=== PATIENT | male | born 1945 | race Caucasian/White ===

== ENCOUNTER 2021-04-17 14:08 | Emergency (ER) | payer BC, OTHER ==
[2021-04-17] MEDS ORDERED: Ketorolac 15 MG/ML SDV IVPUSH ONE (15:56)
[2021-04-17] MEDS ORDERED: Lactated Ringers 1,000 ML IV ONE (15:56)
--- NOTE | 2021-04-17 16:03 | EDM.PDOC ---
ED HPI GENERAL MEDICAL PROBLEM - General Chief Complaint: Respiratory Problem Stated Complaint: SOB Time Seen by Provider: 04/17/21 16:01 Source of Information: Reports: Patient History Limitations: Reports: No Limitations - History of Present Illness INITIAL COMMENTS - FREE TEXT/NARRATIVE: Patient 75-year-old male with no significant past medical history presenting with chief complaint of headache, weakness, fatigue, weight loss. Patient reports symptoms have been going on for 1.5 weeks now. Symptoms have not improved. During this period of time, patient has lost approximately 10 pounds. Patient reports his head is sore but it does not have a headache. He states this is caused him to lose his appetite. He denies any associated nausea, vomiting, diarrhea. Patient has no cough or difficulty breathing. Patient denies any sore throat or runny nose. Patient has no abdominal pain. Patient has had 2 - Covid test during this time. No interventions performed prior to arrival. 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 Social & Family History - Tobacco Use Tobacco Use Status *Q: Current Every Day Tobacco User Years of Tobacco use: 50 Packs/Tins Daily: 1 - Caffeine Use Caffeine Use: Reports: Coffee - Recreational Drug Use Recreational Drug Use: No ED ROS GENERAL - Review of Systems Review Of Systems: See Below Free Text/Narrative/Comment: In addition to that documented in the HPI above, the additional ROS was obtained: Constitutional: Per HPI Eyes: Denies vision changes ENMT: Denies sore throat CV: Denies chest pain Resp: Denies SOB GI: Denies vomiting or diarrhea : Denies painful urination MSK: Denies recent trauma Skin: Denies new rashes Neuro: Denies new numbness or tingling or weakness Endocrine: Per HPI Heme: Denies bleeding disorders ED EXAM, GENERAL - Physical Exam Exam: See Below Free Text/Narrative:: I have reviewed the triage vital signs Const: Well nourished, well developed, appears stated age Eyes: Pupils Equal and reactive to light bilaterally, no conjunctival injection HENT: No signs of trauma or swelling, Neck supple without meningismus CV: Regular Rate Rhythm, Warm, well-perfused extremities RESP: Unlabored respiratory effort GI: soft, non-tender, non-distended, no masses MSK: No gross deformities appreciated Skin: Warm, dry. No rashes Neuro: Alert, stress analyst II-XII grossly intact. Sensation and motor function of extremities grossly intact. Negative Kernig's and Brudzinski sign. Psych: Appropriate mood and affect. Course - Vital Signs Last Recorded V/S: Last Vital Signs Temp 36.8 C 04/17/21 19:07 Pulse 62 04/17/21 19:07 Resp 20 04/17/21 19:07 BP 106/61 04/17/21 19:07 Pulse Ox 93 L 04/17/21 19:07 - Orders/Labs/Meds Labs: Laboratory Tests 04/17/21 04/17/21 04/17/21 Range/Units 15:25 16:27 16:27 WBC 9.72 H (4.23-9.07) K/mm3 RBC 3.82 L (4.63-6.08) M/mm3 Hgb 11.7 L (13.7-17.5) gm/dl Hct 34.2 L (40.1-51.0) % MCV 89.5 (79.0-92.2) fl MCH 30.6 (25.7-32.2) pg MCHC 34.2 (32.2-35.5) g/dl RDW Std Deviation 45.3 H (35.1-43.9) fL Plt Count 372 H (163-337) K/mm3 MPV 10.8 (9.4-12.3) fl Neut % (Auto) 74.0 H (34.0-67.9) % Lymph % (Auto) 11.5 L (21.8-53.1) % Lucas % (Auto) 13.4 H (5.3-12.2) % Eos % (Auto) 0 L (0.8-7.0) Baso % (Auto) 0.3 (0.1-1.2) % Neut # (Auto) 7.19 H (1.78-5.38) K/mm3 Lymph # (Auto) 1.12 L (1.32-3.57) K/mm3 Lucas # (Auto) 1.30 H (0.30-0.82) K/mm3 Eos # (Auto) 0.00 L (0.04-0.54) K/mm3 Baso # (Auto) 0.03 (0.01-0.08) K/mm3 Manual Slide Review Abnormal smear Sodium 129 L (136-145) mEq/L Potassium 4.0 (3.5-5.1) mEq/L Chloride 94 L (98-107) mEq/L Carbon Dioxide 25 (21-32) mEq/L Anion Gap 14.0 (5-15) BUN 28 H (7-18) mg/dL Creatinine 1.1 (0.7-1.3) mg/dL Est Cr Clr Drug Dosing 53.23 mL/min Estimated GFR (MDRD) > 60 (>60) mL/min BUN/Creatinine Ratio 25.5 H (14-18) Glucose 107 H (70-99) mg/dL Lactic Acid (0.4-2.0) mmol/L Calcium 8.5 (8.5-10.1) mg/dL Total Bilirubin 0.5 (0.2-1.0) mg/dL AST 121 H (15-37) U/L ALT 152 H (16-63) U/L Alkaline Phosphatase 95 (46-116) U/L Total Protein 6.8 (6.4-8.2) g/dl Albumin 2.2 L (3.4-5.0) g/dl Globulin 4.6 gm/dL Albumin/Globulin Ratio 0.5 L (1-2) Urine Color (Yellow) Urine Appearance (Clear) Urine pH (5.0-8.0) Ur Specific Billings (1.005-1.030) Urine Protein (Negative) Urine Glucose (UA) (Negative) Urine Ketones (Negative) Urine Occult Blood (Negative) Urine Nitrite (Negative) Urine Bilirubin (Negative) Urine Urobilinogen (0.2-1.0) Ur Leukocyte Esterase (Negative) U Hyaline Cast (Auto) (0-5) /lpf Urine RBC (0-5) /hpf Urine WBC (0-5) /hpf Ur Squamous Epith Cells (0-5) /hpf Urine Bacteria (FEW) /hpf Urine Mucus (FEW) /hpf SARS-CoV-2 RNA (DONY) Negative (NEGATIVE) 04/17/21 04/17/21 Range/Units 16:27 17:50 WBC (4.23-9.07) K/mm3 RBC (4.63-6.08) M/mm3 Hgb (13.7-17.5) gm/dl Hct (40.1-51.0) % MCV (79.0-92.2) fl MCH (25.7-32.2) pg MCHC (32.2-35.5) g/dl RDW Std Deviation (35.1-43.9) fL Plt Count (163-337) K/mm3 MPV (9.4-12.3) fl Neut % (Auto) (34.0-67.9) % Lymph % (Auto) (21.8-53.1) % Lucas % (Auto) (5.3-12.2) % Eos % (Auto) (0.8-7.0) Baso % (Auto) (0.1-1.2) % Neut # (Auto) (1.78-5.38) K/mm3 Lymph # (Auto) (1.32-3.57) K/mm3 Lucas # (Auto) (0.30-0.82) K/mm3 Eos # (Auto) (0.04-0.54) K/mm3 Baso # (Auto) (0.01-0.08) K/mm3 Manual Slide Review Sodium (136-145) mEq/L Potassium (3.5-5.1) mEq/L Chloride (98-107) mEq/L Carbon Dioxide (21-32) mEq/L Anion Gap (5-15) BUN (7-18) mg/dL Creatinine (0.7-1.3) mg/dL Est Cr Clr Drug Dosing mL/min Estimated GFR (MDRD) (>60) mL/min BUN/Creatinine Ratio (14-18) Glucose (70-99) mg/dL Lactic Acid 1.0 (0.4-2.0) mmol/L Calcium (8.5-10.1) mg/dL Total Bilirubin (0.2-1.0) mg/dL AST (15-37) U/L ALT (16-63) U/L Alkaline Phosphatase (46-116) U/L Total Protein (6.4-8.2) g/dl Albumin (3.4-5.0) g/dl Globulin gm/dL Albumin/Globulin Ratio (1-2) Urine Color Lynn H (Yellow) Urine Appearance Slt cloudy H (Clear) Urine pH 5.5 (5.0-8.0) Ur Specific Bill[place] 1.025 (1.005-1.030) Urine Protein 2+ H (Negative) Urine Glucose (UA) Negative (Negative) Urine Ketones 1+ H (Negative) Urine Occult Blood 2+ H (Negative) Urine Nitrite Negative (Negative) Urine Bilirubin 1+ H (Negative) Urine Urobilinogen 0.2 (0.2-1.0) Ur Leukocyte Esterase Negative (Negative) U Hyaline Cast (Auto) 5-10 H (0-5) /lpf Urine RBC 10-20 H (0-5) /hpf Urine WBC 0-5 (0-5) /hpf Ur Squamous Epith Cells 0-5 (0-5) /hpf Urine Bacteria Moderate H (FEW) /hpf Urine Mucus Moderate H (FEW) /hpf SARS-CoV-2 RNA (DONY) (NEGATIVE) Meds: Medications Discontinued Medications Generic Name Dose Route Start Last Admin Trade Name Freq PRN Reason Stop Dose Admin Amoxicillin 1,000 mg 04/17/21 18:29 04/17/21 18:44 Amoxicillin 500 Mg Cap PO 04/17/21 18:30 1,000 mg ONETIME ONE Administration Azithromycin 500 mg 04/17/21 18:30 04/17/21 18:44 Azithromycin 250 Mg Tab PO 04/17/21 18:31 500 mg ONETIME ONE Administration Lactated Ringer's 1,000 mls @ 1,000 mls/hr 04/17/21 15:56 04/17/21 16:32 Ringers, Lactated IV 04/17/21 16:55 1,000 mls/hr .BOLUS ONE Administration Ketorolac Tromethamine 15 mg 04/17/21 15:56 04/17/21 16:30 Ketorolac 15 Mg/Ml Sdv IVPUSH 04/17/21 15:57 15 mg ONETIME ONE Administration Departure - Departure Time of Disposition: 18:29 Disposition: Home, Self-Care 01 Clinical Impression: Pneumonia - Discharge Information *PRESCRIPTION DRUG MONITORING PROGRAM REVIEWED*: Not Applicable *COPY OF PRESCRIPTION DRUG MONITORING REPORT IN PATIENT NIKOS: Not Applicable Prescriptions: Amoxicillin 500 mg PO TID #21 tab Azithromycin [Zithromax] 250 mg PO DAILY #4 tab Instructions: Shortness of Breath, Adult, [id number] Referrals: Shanta Gary MD [Primary Care Provider] - Forms: ED Department Discharge Sepsis Event Note (ED) - Evaluation Sepsis Screening Result: No Definite Risk - Assessment/Plan Assessment:: Patient 75-year-old male presented to the emergency room with a chief complaint of weakness and fatigue as well as cough. Patient had unremarkable ER course. Patient had no evidence of respiratory distress or hypoxia. Patient states he otherwise feels well after the administration of IV fluids in the emergency room. Laboratory studies do not demonstrate any evidence of sepsis. Chest x- ray demonstrates possibility of right lower lobe pneumonia. Covid test is negative. At this point, likely bacterial pneumonia that is community-acquired. Patient initiated on azithromycin and amoxicillin for treatment of this pneumonia. Patient discharged with outpatient follow-up. Appropriate return precautions given. Patient agrees with plan of care.
--- NOTE | 2021-04-17 18:11 | CR ---
Chest: Portable view of the chest was obtained. Comparison: No prior chest imaging is available. Slight increased density is seen peripherally within the right upper lung. Additional density is noted within the right lower lung. Findings most likely represent areas of pneumonia. Please exclude COVID disease. Left lung appears to be clear. Heart size and mediastinum are normal. No acute osseous abnormality is appreciated. Impression: 1. Mild increased density within the right chest. Findings are suspicious for pneumonia. Please rule out COVID disease. Diagnostic code #3
[2021-04-17] MEDS ORDERED: Amoxicillin 500 MG Cap PO ONE (18:29)
[2021-04-17] MEDS ORDERED: Azithromycin 250 MG Tab PO ONE (18:30)
== END 2021-04-17 19:10 | disposition home or self-care (01) ==
LOC: JD.ED 14:08
DX: J18.9 Pneumonia, unspecified organism (principal); Z72.0 Tobacco use; Z20.822 Contact with and (suspected) exposure to COVID-19
CPT/HCPCS: 36415; 71045; 80053; 81001; 83605; 85025; 87635; 96374; 99285; A9270; J1885; J7120; U0002